=== PATIENT | male | born 1960 | race African-American/Black ===

== ENCOUNTER 2024-11-15 08:26 | Emergency (ER) | payer OTHER, SELFPAY | END 2024-11-15 09:08 | disposition home or self-care (01) | LOC: NAV ERS 08:26 | DX: S00.96XA Insect bite (nonvenomous) of unspecified part of head, initial encounter (principal); S80.869A Insect bite (nonvenomous), unspecified lower leg, initial encounter; S40.869A Insect bite (nonvenomous) of unspecified upper arm, initial encounter; I11.0 Hypertensive heart disease with heart failure; I50.9 Heart failure, unspecified; Z87.891 Personal history of nicotine dependence; W57.XXXA Bitten or stung by nonvenomous insect and other nonvenomous arthropods, initial encounter | CPT/HCPCS: 99282 ==

== ENCOUNTER 2025-01-16 11:04 | Emergency (ER) | payer OTHER | END 2025-01-16 11:36 | disposition home or self-care (01) | LOC: NAV ERS 11:04 | DX: I11.0 Hypertensive heart disease with heart failure (principal); I50.9 Heart failure, unspecified; E78.5 Hyperlipidemia, unspecified | CPT/HCPCS: 99282 ==

== ENCOUNTER 2025-08-19 16:58 | Emergency (ER) | payer OTHER ==
[~2025-08-19 16:58] MED LIST: Iopamidol 370 76% 100 ML VIAL ONE
[2025-08-19 17:35] LABS: #Basophils 0.1 thou/uL (0.0-0.2); #Eosinophils 0.2 thou/uL (0.0-0.7); #Lymphocytes 1.3 thou/uL (1.20-3.40); #Monocytes 0.6 thou/uL (0.11-0.59); #Neutrophils 2.7 thou/uL (1.40-6.50); %Basophils 3.0 % (0.0-1.0); %Eosinophils 4.0 % (0.0-10.0); %Lymphocytes 26.2 % (21.0-51.0); %Monocytes 12.2 % (0.0-10.0); %Neutrophils 54.6 % (42.0-75.0); Hematocrit 38.5 % (42.0-52.0); Hemoglobin 11.6 g/dL (14.0-18.0); Mean Corpuscular Hemoglobin 22.5 pg (27.0-31.0); Mean Corpuscular Volume 74.9 fl (78.0-98.0); Platelet Count 205 10x3/uL (130-400); Red Blood Cell (RBC) Count 5.14 mill/uL (4.70-6.10); White Blood Cell (WBC) Count 5.0 10x3/uL (4.8-10.8)
[2025-08-19] MEDS ORDERED: Furosemide 40 MG (4 mL) VIAL ONE (17:46)
[2025-08-19 17:54] LABS: ALT (SGPT) 20 U/L (Less than 45); AST (SGOT) 37 U/L (11-34); Albumin 3.1 g/dL (3.1-4.5); Alkaline Phosphatase 93 U/L (40-110); Anion Gap 17 mmol/L (10-20); BUN (Urea Nitrogen) 16 mg/dL (8.4-25.7); Bilirubin, Total 0.8 mg/dL (0.3-1.2); Calc. Creatinine Clearance 0 mL/min (70-130); Calcium 8.6 mg/dL (7.8-10.44); Carbon Dioxide 22 mmol/L (23-31); Chloride 105 mmol/L (98-107); Globulin 3.7 g/dL (2.4-3.5); Glucose 87 mg/dL (80-115); Lipase 43 U/L (8-78); Potassium 3.7 mmol/L (3.5-5.1); Sodium 140 mmol/L (136-145)
[2025-08-19 17:55] LABS: Troponin I 0.027 ng/mL (< 0.028)
[2025-08-19 18:31] LABS: Glucose, Urine (Dipstick) Negative (Negative); Leukocyte Negative (Negative); Protein, Urine (Dipstick) Negative (Neg-Trace); Specific Gravity, Urine 1.010 (1.005-1.030)
[2025-08-19 18:40] LABS: Cocaine Metabolite Screen Negative (Negative); THC/Cannabinoid Screen Negative (Negative); Tricyclic Screen Negative (Negative)
[2025-08-19 19:00] LABS: CAUTI Indications for Culture Dysuria,urgency,freq; WBC/HPF 0-3 HPF (0-3)
[2025-08-19 19:02] LABS: Urine Culture Reflex No No
== END 2025-08-19 22:32 | disposition short-term general hospital (02) ==
LOC: NAV ERS 16:58
DX: I11.0 Hypertensive heart disease with heart failure (principal); I50.9 Heart failure, unspecified; E87.70 Fluid overload, unspecified; R18.8 Other ascites; N50.89 Other specified disorders of the male genital organs; N48.89 Other specified disorders of penis
CPT/HCPCS: 71045; 74177; 80053; 80306; 81001; 83690; 83880; 84484; 85025; 85379; 93005; 96374; J1940; Q9967